=== PATIENT | male | born 1970 | race Two or more races ===

== ENCOUNTER 2022-06-03 01:59 | Emergency (ER) | payer MEDICAID, OTHER ==
[~2022-06-03] VITALS: Ht 154.9 cm; Wt 80.7 kg
--- NOTE | 2022-06-03 02:05 | NUR ---
AUGUSTINE. WITNESSES SEIZURE, DESCRIBED TONIC CLONIC. NOT ON MEDS. NO ORAL TRAUMA. PATIENT CAME AAOX4. ABLE TO MAKE NEEDS KNOWN. PATIENT IS PLACED IN BED COMFORTABLY. ON SEIZURE PRECAUTION. VITALS CHECKED.
--- NOTE | 2022-06-03 02:16 | NUR ---
DR. CONNORS AT PT'S BEDSIDE
[2022-06-03] MEDS ORDERED: VALPROATE 1,000 MG in IV D5W 100 ML IV SCH (02:30)
--- NOTE | 2022-06-03 02:30 | NUR ---
IV CANNULA G20 INSERTED ON RIGHT AC. BLOOD DRAWN AND SENT TO LAB
[2022-06-03 02:51] LABS: BASOPHILS % (AUTO) 0.6 % (0.0-2.0); HEMATOCRIT 43 % (39-51); HEMOGLOBIN 14.5 g/dL (13.5-17.5); LYMPHOCYTES # (AUTO) 1.8 K/uL (0.8-4.8); LYMPHOCYTES % (AUTO) 35.3 % (20.0-44.0); MEAN CORPUSCULAR HGB CONC 34 g/dl (31.0-36.0); MEAN CORPUSCULAR VOLUME 93 fL (80-96); MONOCYTES # (AUTO) 0.4 K/uL (0.1-1.30); MONOCYTES % (AUTO) 7.6 % (2.0-12.0); NEUTROPHILS # (AUTO) 2.8 K/uL (1.8-8.9); NEUTROPHILS % (AUTO) 53.5 % (43.0-81.0); PLATELET COUNT (AUTO) 199 K/uL (150-450); RED BLOOD CELL COUNT(AUTO) 4.63 MIL/uL (4.5-6.0); WHITE BLOOD COUNT (AUTO) 5.2 K/uL (4.3-11.0)
--- NOTE | 2022-06-03 02:58 | NUR ---
FAMILY MEMBER MEHREEN
[2022-06-03] MEDS ORDERED: DIVALPROEX SODIUM 500 MG TABLET.DR PO ONE ×2 (03:00)
[2022-06-03 03:02] LABS: CALCIUM, SERUM 8.7 mg/dL (8.5-10.1); POTASSIUM 3.7 mmol/L (3.5-5.1)
[2022-06-03 03:17] LABS: ALBUMIN 3.7 g/dL (3.4-5.0); BILIRUBIN,DIRECT 0.1 mg/dL (0.0-0.2)
--- NOTE | 2022-06-03 03:27 | NUR ---
Patient discharged to home in stable condition. Written and verbal after care instructions given. Patient verbalizes understanding of instruction. IV removed. Catheter intact and site benign. Pressure and 4x4 applied to site. No bleeding noted. PT ambulatory with a steady gait
[2022-06-03 03:31] VITALS: BP 143/78
== END 2022-06-03 03:31 | disposition home or self-care (01) ==
LOC: ER 02:00
DX: G43.909 Migraine, unspecified, not intractable, without status migrainosus (principal)
CPT/HCPCS: 36415; 80048-TC; 80076-TC; 85025-TC